=== PATIENT | female | born 1970 | race Caucasian/White ===

== ENCOUNTER → 2020-09-03 08:32 | Outpatient (CLI) | payer OTHER, SELFPAY ==
[2020-09-03 09:54] LABS: Add Manual Diff / Slide Review NO; Basophils Absolute Auto 100 /uL (0-100); Basophils Percent Auto 1.2 % (0-2); Eosinophils Absolute Auto 100 /uL (0-450); Eosinophils Percent Auto 2.6 % (2-4); Hemoglobin 12.2 g/dL (12.0-16.0); Lymphocytes Absolute Auto 1500 /uL (1100-4500); Lymphocytes Percent Auto 28.2 % (25-40); Mean Corpuscular HGB Conc 32.8 % (30-36); Mean Corpuscular Hemoglobin 30.4 PG (26-34); Mean Corpuscular Volume 92.5 fL (80-100); Monocytes Absolute Auto 400 /uL (0-900); Monocytes Percent Auto 6.8 % (3-14); Neutrophils Absolute Auto 3200 /uL (1500-7000); Neutrophils Percent Auto 61.2 % (50-75); Platelet Count 305 X10^3/uL (150-400); Red Cell Distribution Width 13.7 % (11.6-14.8); White Blood Cell Count 5.3 X10^3/uL (4.5-11.0)
[2020-09-03 10:04] LABS: Alanine Aminotransferase 12 IU/L (<35); Albumin 4.1 g/dL (3.5-5.0); Albumin Globulin Ratio 1.6 (1.0-2.8); Alkaline Phosphatase 44 U/L (38-126); Aspartate Aminotransferase 18 IU/L (14-36); BUN Creatinine Ratio 17.7 (6-22); Bilirubin Total 0.4 mg/dL (0.2-1.3); Blood Urea Nitrogen 11 mg/dL (7-17); Calcium 9.1 mg/dL (8.4-10.2); Carbon Dioxide 28 mmol/L (22-32); Chloride 108 mmol/L (98-107); Cholesterol 199 mg/dL (140-199); Estimated Glomerular Filt Rate > 60.0 mL/min (>60); Globulin 2.6 g/dL (1.7-4.1); Glucose 94 mg/dL (70-100); HDL Cholesterol 56 mg/dL (40-60); HEMOLYSIS < 15 (0-50); LDL Cholesterol Calculated 132 mg/dL (<100); Potassium 4.6 mmol/L (3.4-5.1); Sodium 140 mmol/L (137-145); Total Protein 6.7 g/dL (6.3-8.2); Triglycerides 54 mg/dL (35-150)
== END ==
PROVIDERS: PCP Registered Nurse; Referring Provider Registered Nurse; Visit Provider Registered Nurse
DX: D64.9 Anemia, unspecified (principal); Z82.49 Family history of ischemic heart disease and other diseases of the circulatory system
CPT/HCPCS: 36415; 80053; 80061; 85025

== ENCOUNTER → 2022-12-18 09:26 | Outpatient (CLI) | payer OTHER, SELFPAY ==
[2022-12-18 10:19] LABS: Hematocrit 38.3 % (36-46); Hemoglobin 12.4 g/dL (12.0-16.0); Mean Corpuscular HGB Conc 32.4 % (30-36); Mean Corpuscular Volume 92.3 fL (80-100); Platelet Count 386 X10^3/uL (150-400); Red Blood Cell Count 4.15 X10^6/uL (4.0-5.2); Red Cell Distribution Width 14.1 % (11.6-14.8); White Blood Cell Count 6.7 X10^3/uL (4.5-11.0)
[2022-12-18 10:40] LABS: HEMOLYSIS < 15 (0-50); Iron 128 ug/dL (37-170)
[2022-12-18 10:41] LABS: Alanine Aminotransferase 18 IU/L (<35); Albumin 4.7 g/dL (3.5-5.0); Albumin Globulin Ratio 1.7 (1.0-2.8); Alkaline Phosphatase 62 U/L (38-126); Aspartate Aminotransferase 22 IU/L (14-36); BUN Creatinine Ratio 21.1 (6-22); Bilirubin Total 0.7 mg/dL (0.2-1.3); Blood Urea Nitrogen 15 mg/dL (7-17); Calcium 9.7 mg/dL (8.4-10.2); Carbon Dioxide 28 mmol/L (22-32); Chloride 104 mmol/L (98-107); Cholesterol 271 mg/dL (140-199); Estimated Glomerular Filt Rate > 60 mL/min (>60); Globulin 2.8 g/dL (1.7-4.1); Glucose 88 mg/dL (70-100); HDL Cholesterol 62 mg/dL (40-60); HEMOLYSIS < 15 (0-50); LDL Cholesterol Calculated 192 mg/dL (<100); Potassium 4.3 mmol/L (3.4-5.1); Sodium 141 mmol/L (137-145); Total Protein 7.5 g/dL (6.3-8.2); Triglycerides 83 mg/dL (35-150)
[2022-12-18 10:51] LABS: Percent Iron Saturation 38 % (15-50); Total Iron Binding Capacity 341 ug/dL (265-497); Transferrin 259 mg/dL (206-381)
[2022-12-18 10:58] LABS: Vitamin D 25 Hydroxy (D3) 18.8 ng/mL (30.0-100.0)
[2022-12-18 11:12] LABS: TSH w/ Reflex to FT4 1.07 uIU/mL (0.47-4.68)
[2022-12-18 11:15] LABS: Ferritin 49 ng/mL (11-264)
== END ==
PROVIDERS: PCP Family Medicine; Referring Provider Family Medicine; Visit Provider Family Medicine
DX: D64.9 Anemia, unspecified (principal); E55.9 Vitamin D deficiency, unspecified; E78.5 Hyperlipidemia, unspecified; Z12.11 Encounter for screening for malignant neoplasm of colon; Z12.39 Encounter for other screening for malignant neoplasm of breast
CPT/HCPCS: 36415; 80053; 80061; 82306; 82728; 83540; 83550; 84443; 85027

== ENCOUNTER → 2023-01-10 12:26 | Outpatient (CLI) | payer OTHER, SELFPAY ==
--- NOTE | 2023-01-10 12:27 | DI.MG.S_ITS ---
BILATERAL DIGITAL SCREENING MAMMOGRAM 3D/2D WITH CAD: 01/10/2023 CLINICAL: Routine screening. Family history of breast cancer. Comparison is made to exams dated: 04/08/2013 mammogram and 03/16/2010 mammogram - out side. Both breasts are heterogeneously dense, which may obscure small masses (category c / 51-75% glandular tissue). Current study was also evaluated with a Computer Aided Detection (CAD) system. No significant masses, calcifications, or other findings are seen in either breast. There has been no significant interval change. IMPRESSION: NEGATIVE There is no mammographic evidence of malignancy. A 1 year screening mammogram is recommended. Based on Tyrer-Cuzick model (a risk assessment model), the patient's lifetime risk is 27.9% and her 10 year risk is 8.2%. If a patient has an elevated risk, a more comprehensive evaluation should be considered and/or a referral to a genetic counselor. The [employer] [employer], [employer], and NCCN Guidelines advise the consideration of Breast MRI as an adjunct to screening mammography in patients whose Lifetime risk to develop breast cancer is 20% or higher. This exam was interpreted at Station ID: [id number]. NOTE: For mammograms, a report in lay terms will be sent to the patient. Approximately 15% of breast malignancies will not be visualized mammographically. In the management of a palpable breast mass, a negative mammogram must not discourage biopsy of a clinically suspicious lesion. Electronically Signed By: Vini dave/heidi:01/11/2023 11:26:32 letter sent: Normal Exam ACR BI-RADS Category 1: Negative [id number]
== END ==
PROVIDERS: PCP Family Medicine; Referring Provider Family Medicine; Visit Provider Family Medicine
DX: Z12.31 Encounter for screening mammogram for malignant neoplasm of breast (principal); D64.9 Anemia, unspecified; E55.9 Vitamin D deficiency, unspecified; E78.5 Hyperlipidemia, unspecified; Z12.11 Encounter for screening for malignant neoplasm of colon; Z12.39 Encounter for other screening for malignant neoplasm of breast
CPT/HCPCS: 77063; 77067

== ENCOUNTER 2023-03-26 08:59 | Emergency (ER) | payer OTHER, SELFPAY ==
[2023-03-26 09:09] VITALS: BP 186/74; PULSE 66; RESP 14; TEMP 36.2; O2SAT 99; BMI 27.1
--- NOTE | 2023-03-26 09:11 | DI.RAD.S_ITS ---
PROCEDURE: XR FOOT RT MIN 3V INDICATIONS: ankle/foot pain TECHNIQUE: Three views of the foot were acquired. COMPARISON: None. FINDINGS: Bones: Small osseous fragment adjacent to the distal fibular tip could represent a minimally displaced avulsion fracture. No suspicious bony lesions. Soft tissues: Mild soft tissue edema. No suspicious soft tissue calcification. IMPRESSION: Small osseous fragment adjacent to the distal fibular tip could represent a minimally displaced avulsion fracture. Approved by: Abraham Jordan M.D. on 03/26/2023 at 9:57
--- NOTE | 2023-03-26 09:11 | DI.RAD.S_ITS ---
PROCEDURE: XR ANKLE RT MIN 3V INDICATIONS: ankle/foot pain TECHNIQUE: Three views of the ankle were acquired. COMPARISON: None. FINDINGS: Bones: Tiny calcification adjacent to the distal fibular tip could represent a minimally displaced avulsion fragment. Ankle mortise is normally aligned. No suspicious bony lesions. Small posterior calcaneal enthesophyte. Soft tissues: No suspicious soft tissue calcification. Mild soft tissue edema over the lateral malleolus. IMPRESSION: Small calcification adjacent to the distal fibular tip could represent a small minimally displaced osseous avulsion fragment. Approved by: Abraham Jordan M.D. on 03/26/2023 at 9:56
--- NOTE | 2023-03-26 09:59 | PC.NURSE ---
Pt not in lobby when I attempted to bring her into the ED to see the provider
--- NOTE | 2023-03-26 10:29 | PC.NURSE ---
Attempted to bring pt into ED,unable to locate her
--- NOTE | 2023-03-26 11:08 | PC.NURSE ---
3rd attempt made to locate pt,Dr Oconnor will call pt regarding xray
--- NOTE | 2023-03-26 18:08 | ED.LOWEXIN ---
HPI - Extremity Injury (Lower) General Chief Complaint: Extremity Injury, Lower Stated Complaint: Fell down stairs T-3, swelling and pain L/foot Source: patient Mode of arrival: Ambulatory History of Present Illness HPI Narrative: Patient left prior to my evaluation. Triage put in x-rays questionable avulsion fracture. I have called and spoken to patient she reports that she rolled it 4 days ago she was able to walk on it initially but is getting more and more painful and unable to walk. Encouraged her to return to the emergency department for further treatment and pain medication This is a LWBS Related Data Previous Rx's Medication Instructions Recorded estradiol 0.0375 mg/24 hr 1 patch transdermal 2XW #8 ea 03/04/23 semiweekly transdermal patch progesterone micronized 200 mg 200 mg PO BEDTIME #60 caps 03/04/23 capsule (Prometrium) Allergies Allergy/AdvReac Type Severity Reaction Status Date / Time Penicillins Allergy Unknown childhood Verified 03/26/23 09:08 Patient History Social History Smoking Status: Current some day smoker Tobacco: How many years used: 30 alcohol intake: current (1-2 drinks twice weekly ) substance use type: marijuana (couple times a month) Smoking Status: Current some day smoker alcohol intake frequency: a few times a week Substance Use Type: marijuana Exam Initial Vital Signs Initial Vital Signs: Vital Signs Temperature 97.2 F L 03/26/23 09:09 Pulse Rate 66 03/26/23 09:09 Respiratory Rate 14 03/26/23 09:09 Blood Pressure 186/74 H 03/26/23 09:09 Pulse Oximetry 99 03/26/23 09:09 Oxygen Delivery Method Room Air 03/26/23 09:09 Course Orders Ordered: ED Orders 03/26/23 09:11 XR ankle RT min 3V Stat XR foot RT min 3V Stat Discharge Plan Departure Prescriptions: No Action estradiol 0.0375 mg/24 hr patch semiweekly 1 patch transdermal 2XW Qty: 8 1RF Rx Instructions: apply 1 patch for 3 days alternating with 1 patch for 4 days each week for 3 wks per 4-wk cycle progesterone micronized [Prometrium] 200 mg capsule 200 mg PO BEDTIME Qty: 60 1RF Referrals: Nica Rollins DO [Primary Care Provider] -
== END 2023-03-26 11:08 | disposition left against medical advice (07) ==
PROVIDERS: Emergency Provider Emergency Medicine; PCP Family Medicine
DX: S99.911A Unspecified injury of right ankle, initial encounter (principal); S99.921A Unspecified injury of right foot, initial encounter; W10.9XXA Fall (on) (from) unspecified stairs and steps, initial encounter; S82.401A Unspecified fracture of shaft of right fibula, initial encounter for closed fracture; W01.0XXA Fall on same level from slipping, tripping and stumbling without subsequent striking against object, initial encounter
CPT/HCPCS: 73610; 73630; 99281; 99283

== ENCOUNTER 2023-03-26 19:47 | Emergency (ER) | payer OTHER, SELFPAY ==
[2023-03-26 19:53] VITALS: BP 114/71; PULSE 95; RESP 16; TEMP 36.9; O2SAT 95; BMI 26.9
--- NOTE | 2023-03-26 20:05 | ED.LOWEXIN ---
HPI - Extremity Injury (Lower) General Chief Complaint: Extremity Injury, Lower Stated Complaint: SENT FOR A WALKING BOOT Time Seen by Provider: 03/26/23 20:01 Source: patient Mode of arrival: Ambulatory History of Present Illness HPI Narrative: Patient is a 52-year-old female who was seen here in the emergency department earlier today and had x-rays performed secondary to an injury that she sustained to her right ankle a couple days ago when she tripped down a couple stairs. Apparently there was some miscommunication as she was told by the x-ray tech that the results would be available in 2-3 days so the patient left without actually being seen by a provider. The x-rays were reviewed by the day provider in she was contacted and told to return to the emergency department because of the findings showing a avulsion fracture of the lateral malleolus. Patient is here for a walking boot. Related Data Previous Rx's Medication Instructions Recorded estradiol 0.0375 mg/24 hr 1 patch transdermal 2XW #8 ea 03/04/23 semiweekly transdermal patch progesterone micronized 200 mg 200 mg PO BEDTIME #60 caps 03/04/23 capsule (Prometrium) Allergies Allergy/AdvReac Type Severity Reaction Status Date / Time Penicillins Allergy Unknown childhood Verified 03/26/23 19:56 Review of Systems Musculoskeletal Musculoskeletal: Reports system reviewed and no additional complaints, except as documented Integumentary/Breasts Skin/Breast: Reports system reviewed and no additional complaints, except as documented Neurologic Neurologic: Reports system reviewed and no additional complaints, except as documented Patient History Social History Smoking Status: Current some day smoker Tobacco: How many years used: 30 alcohol intake: current (1-2 drinks twice weekly ) substance use type: marijuana (couple times a month) Smoking Status: Current some day smoker alcohol intake frequency: a few times a week Substance Use Type: marijuana Exam Initial Vital Signs Initial Vital Signs: Vital Signs Temperature 98.4 F 03/26/23 19:53 Pulse Rate 95 H 03/26/23 19:53 Respiratory Rate 16 03/26/23 19:53 Blood Pressure 114/71 03/26/23 19:53 Pulse Oximetry 95 03/26/23 19:53 Oxygen Delivery Method Room Air 03/26/23 19:53 Cardio Pulses: dorsalis pedis present on the right Skin General: no rashes or lesions noted Neuro Sensory Exam: no sensory deficits noted Extrem Other: Patient does have tenderness to palpation along the lateral malleolus. The Achilles tendon is intact. Minimal medial malleolar pain. Procedures Orthopedic Splinting/Casting Injury #1: Side: right Lower Extremity Injury Location: ankle Lower Extremity Immobilizer: boot orthosis Post splinting neuro exam: no change Post splinting vascular exam: no change Placed by: Nursing Course Vital Signs Vital signs: Vital Signs - 8 hr 03/26/23 19:53 Temperature 98.4 F Pulse Rate 95 H Respiratory Rate 16 Blood Pressure 114/71 Pulse Oximetry 95 Oxygen Delivery Method Room Air MDM - Extremity Injury (Lower) Imaging Data Extremity x-ray #1: Radiologist's Impression: PROCEDURE:? XR ANKLE RT MIN 3V ? INDICATIONS:? ankle/foot pain ? TECHNIQUE:? Three views of the ankle were acquired.? ? COMPARISON:? None. ? FINDINGS:? ? Bones:? Tiny calcification adjacent to the distal fibular tip could represent a minimally displaced avulsion fragment.? Ankle mortise is normally aligned.? No suspicious bony lesions.? Small posterior calcaneal enthesophyte. ? Soft tissues:? No suspicious soft tissue calcification.? Mild soft tissue edema over the lateral malleolus. ? IMPRESSION:? Small calcification adjacent to the distal fibular tip could represent a small minimally displaced osseous avulsion fragment. Extremity x-ray #2: Radiologist's Impression: PROCEDURE:? XR FOOT RT MIN 3V ? INDICATIONS:? ankle/foot pain ? TECHNIQUE:? Three views of the foot were acquired.? ? COMPARISON:? None. ? FINDINGS:? ? Bones:? Small osseous fragment adjacent to the distal fibular tip could represent a minimally displaced avulsion fracture.? No suspicious bony lesions.? ? Soft tissues:? Mild soft tissue edema.? No suspicious soft tissue calcification. ? IMPRESSION:? Small osseous fragment adjacent to the distal fibular tip could represent a minimally displaced avulsion fracture. [facility] Narrative Medical decision making narrative: The x-rays that are included in this note of a reference purposes only. They were ordered and performed earlier today. They do show a avulsion fracture of the lateral malleolus and the patient does have discomfort with this area. There were no other injuries noted on the x-rays. Patient was placed in a walking boot. There was no indication for crutches. She was given return precautions and follow-up instructions. She expressed understanding and agreement. Discharge Plan Departure Patient Disposition: Home Clinical Impression: Fracture, fibula Instructions: How to Use a Walking Boot Activity Restrictions/Additional Instructions: The walking boot is for your comfort you can take it off at night to sleep and also to shower. I would wear it for the next week or so but then after that you can trial walking on your right leg without the boot and when you are able to walk without any discomfort you can discontinue the boot altogether. Prescriptions: No Action estradiol 0.0375 mg/24 hr patch semiweekly 1 patch transdermal 2XW Qty: 8 1RF Rx Instructions: apply 1 patch for 3 days alternating with 1 patch for 4 days each week for 3 wks per 4-wk cycle progesterone micronized [Prometrium] 200 mg capsule 200 mg PO BEDTIME Qty: 60 1RF Referrals: Nica Rollins DO [Primary Care Provider] - Stand Alone Forms: Patient Portal/API
== END 2023-03-26 20:10 | disposition home or self-care (01) ==
LOC: ED 20:13
PROVIDERS: Emergency Provider Emergency Medicine; PCP Family Medicine
DX: S82.401A Unspecified fracture of shaft of right fibula, initial encounter for closed fracture (principal); W01.0XXA Fall on same level from slipping, tripping and stumbling without subsequent striking against object, initial encounter
CPT/HCPCS: 99281

== ENCOUNTER → 2023-05-09 15:39 | Outpatient (CLI) | payer OTHER, SELFPAY ==
--- NOTE | 2023-05-09 | DI.RAD.S_ITS ---
PROCEDURE: XR ANKLE RT MIN 3V INDICATIONS: Right foot/ankle pain TECHNIQUE: 3 views of the ankle were acquired. COMPARISON: [facility], CR, XR ANKLE RT MIN 3V, 03/26/2023, 9:17. FINDINGS: Bones: No fractures or dislocations. Ankle mortise is normally aligned. No suspicious bony lesions. Soft tissues: [id number] tibiotalar joint effusion. Achilles tendon appears normal. Soft tissue swelling. IMPRESSION: No acute osseous abnormality. There is tibiotalar joint effusion. If clinical symptoms persist, consider MRI for further evaluation. Dictated by: Ricci Ramos M.D. on 05/09/2023 at 16:39 Approved by: iRcci Ramos M.D. on 05/09/2023 at 16:41
--- NOTE | 2023-05-09 | DI.RAD.S_ITS ---
PROCEDURE: XR FOOT RT MIN 3V INDICATIONS: Right foot/ankle pain TECHNIQUE: 3 views of the foot were acquired. COMPARISON: [facility], CR, XR ANKLE RT MIN 3V, 05/09/2023, 15:37. [facility], CR, XR FOOT RT MIN 3V, 03/26/2023, 9:19. FINDINGS: Bones: No fractures or dislocations. No suspicious bony lesions. Soft tissues: No tibiotalar joint effusion. Achilles tendon appears normal. IMPRESSION: 1. No acute osseous abnormalities. If clinical symptoms persist or there is clinical suspicion for internal derangement, MRI is suggested for further evaluation. Dictated by: Ricci Ramos M.D. on 05/09/2023 at 16:41 Approved by: Ricci Ramos M.D. on 05/09/2023 at 16:44
== END ==
PROVIDERS: Family Provider Family Medicine; PCP Family Medicine; Referring Provider Podiatrist Foot & Ankle Surgery; Visit Provider Podiatrist Foot & Ankle Surgery
DX: M25.571 Pain in right ankle and joints of right foot (principal); M25.471 Effusion, right ankle
CPT/HCPCS: 73610; 73630

== ENCOUNTER 2023-05-16 10:38 | Outpatient (RCR) | payer OTHER, SELFPAY ==
--- NOTE | 2023-05-16 11:48 | PT.OIE ---
Current Diagnoses Pain in right foot (05/16/23) Pain in left foot (05/16/23) Paresthesia of skin (05/16/23) Unspecified fracture of shaft of unspecified fibula, initial encounter for closed fracture (05/16/23) Visit Care Team Role Provider Type Nica Rollins DO Attending Provider Physician Family Provider Primary Care Provider Referring Provider Specialty: Medical Address: [address] [place] [address], [address], [place], [address] Email: [email or web address] Physical Therapy Initial Evaluation PT-OP-A Visit Information Start: 05/16/23 10:42 Freq: Status: Active Protocol: Document 05/16/23 11:29 ED (Rec: 05/16/23 11:48 ED [id number]) Out-Patient Physical Therapy Visit Information Visit Information Visit Type Initial Evaluation Visit Note 1 Visit Start Time 10:45 Visit Stop Time 11:30 Total Visit Minutes 45 Visit Number 1 Evaluation Information Evaluation Date 05/16/23 PT-OP-B Current Condition Start: 05/16/23 10:42 Freq: Status: Active Protocol: Document 05/16/23 11:29 ED (Rec: 05/16/23 11:48 ED [id number]) Current Condition History of Current Condition Onset Date February 2023 Current Complaints R foot dorsal pain and sensitivity History of Current Condition Pt states she fell down stairs in February 2023 and had a minor foot injury and went to work. She later had increasing pain so had radiographs which revealed a small avulsion fracture of her R distal fibula. Pt has been in and out of a walking boot, as deemed appropriate by her current campus monitor, since then. She is not donning an ankle boot today. She states that she just saw her campus monitor earlier today and they want her back in the boot for 4 additional weeks. She states she has had negative radiographs recently. She notes her lateral malleolus feels fine now and most of her pain is near the MTP joints of her R foot. Pt states she will likely don the boot for 4 more weeks and wants to know if there are any exercises she can do in the interim. PT-OP-C Subjective Start: 05/16/23 10:42 Freq: Status: Active Protocol: Document 05/16/23 11:29 ED (Rec: 05/16/23 11:48 ED [id number]) OP-PT Subjective Patient Comments Patient Reported Progress Same Patient Questionnaires Lower Extremity Functional Scale LEFS Score 46/80 LEFS Impairment 40 to 59% Impaired (Score 32- 47) OP-PT Pain Assessment Location R dorsum of foot Intensity 5 Scale Used Numeric (0 - 10) Description Aching Frequency Frequent Pain Aggravating Factors Position,Changing Position, Activity,Exercise,Standing, Walking Pain Alleviating Factors Rest PT-OP-G Mobility & Gait Start: 05/16/23 10:42 Freq: Status: Active Protocol: Document 05/16/23 11:29 ED (Rec: 05/16/23 11:48 ED [id number]) OP Gait Assessment Gait Gait Assistance Required: Independent Gait Deviations General Gait Pattern Antalgic Factors Limiting Gait Function Factors Limiting Gait Function Limited Range of Motion,Pain PT-OP-K Range of Motion Start: 05/16/23 10:42 Freq: Status: Active Protocol: Document 05/16/23 11:29 ED (Rec: 05/16/23 11:48 ED [id number]) Ankle and Foot Goniometric Range of Motion Ankle and Foot Left Active Ankle/Foot ROM WFL Yes Testing Position Sitting Dorsiflexion with Knee Extended 5 Plantarflexion 65 Comments patient lacking 5 degrees DF K2W (CM): 10 ankle girth: 48 cm Right Active Ankle/Foot ROM WFL No Testing Position Sitting Dorsiflexion with Knee Extended 5 Plantarflexion 52 Comments patient lacking 5 degrees DF K2W (CM): 7 ankle girth: 52 cm PT-OP-Q Treatments Start: 05/16/23 10:42 Freq: Status: Active Protocol: Document 05/16/23 11:29 ED (Rec: 05/16/23 11:48 ED [id number]) Therapeutic Exercises Sitting Exercises MTP extension stretch Side bilateral Reps/Minutes x15-20 reps inversion Sitting Exercise Name banded inversion Side bilateral Resistance GTB Reps/Minutes x15-20 isometrics Sitting Exercise Name flexion/extension isometrics Side bilateral Reps/Minutes x5 5'' holds Comments invidividual toe isometrics arch lifts Side bilateral Reps/Minutes x5 c/ 5'' holds toe yoga Sitting Exercise Name toe extension/flexion Side bilateral Reps/Minutes x5 c/ 5'' holds PT-OP-T Assessment and Plan Start: 05/16/23 10:42 Freq: Status: Active Protocol: Document 05/16/23 11:29 ED (Rec: 05/16/23 11:48 ED [id number]) Physical Therapy Assessment Rehab Potential Rehabilitation Potential Fair Evaluation Complexity Number of Personal Factors/Comorbidities 1-2 Number of Body Systems Impaired 3 Clinical Presentation at Evaluation Stable Impairments Impairments Activity Tolerance,Edema, Functional Activities Goals Four Impairment LEFS Lan Specialist Goal (LTG) Pt will improve LEFS score to 20%-39% impaired. Two Impairment ROM Short Term Goal (STG) Pt will improve DF ROM (knee to wall test) by 1 cm to 8 cm. STG Duration 2 weeks Lan Specialist Goal (LTG) Pt will demonstrate equal ankle ROM for L and R ankle. LTG Duration 8 weeks Three Impairment pain Short Term Goal (STG) Pt will report 20% improvement in R foot pain during daily activities. STG Duration 3 weeks Nursing Home Goal (LTG) Pt will report 50% improvement in R foot pain during daily activities. LTG Duration 6 weeks One Impairment HEP Short Term Goal (STG) Pt will report performing HEP >4 days/week c/o increases in pain or swelling. STG Duration 2 weeks Nursing Home Goal (LTG) Pt will report performing HEP >4 days/week c/o increases in pain or swelling. LTG Duration 6 weeks Assessment Summary Assessment Pt reported to PT after sustaining a distal fibular avulsion fracture in late February 2023. Pt stated that she had just visited her campus monitor who informed her she should be back to wearing a boot for 4 more weeks and she was unsure if she should participate in PT. PT tooks measurements of ankle for ROM and girth to measure limitations in addition to manual muscle test to determine strength impairments and pain source. Pt had slight limitations in R ankle ROM compared to L and about 4 cm increase in ankle girth of R ankle vs L. PT provided patient of low level, non-WBing exercises such as toe yoga, foot arch squeezes, banded inversion, and MTP stretch which she was able to do comfortably today if she controlled how much force she put into the movement pattern. Physical Therapy Plan Frequency and Duration Frequency of Treatment 1-2x/week Duration of treatment (weeks) 10 Plan of Care Start Date 05/16/23 Plan of Care End Date 11/01/23 Therapeutic Interventions Therapeutic Interventions Balance Training,Gait Training ,Home Exercise Program,Joint Mobilizations,Manual Therapy, Neuromuscular Re-education, Orthotic/Prosthetic Management ,Soft Tissue Mobilization, Taping,Therapeutic Activities, Therapeutic Exercises Modalities Biofeedback,Cold Pack/Ice Massage,Electric Stimulation, Hot Packs,Ultrasound Next Visit Focus/Plan Next Note Type Treatment Note Next Visit Plan NS, HEP (toe yoga, foot arch, toe isometrics, MTP repeated mobs, banded inversion), RS of ankle, re-test K2W and ankle girth
--- NOTE | 2023-05-16 11:48 | PT.OPPOC ---
Physical, Occupational & Speech Therapy At [facility] Current Diagnoses Pain in right foot (05/16/23) Pain in left foot (05/16/23) Paresthesia of skin (05/16/23) Unspecified fracture of shaft of unspecified fibula, initial encounter for closed fracture (05/16/23) Visit Care Team Role Provider Type Nica Rollins DO Attending Provider Physician Family Provider Primary Care Provider Referring Provider Specialty: Medical Address: [address] [place] [address], [address], [place], [address] Email: [email or web address] Plan Of Care PT-OP-T Assessment and Plan Start: 05/16/23 10:42 Freq: Status: Active Protocol: Document 05/16/23 11:29 ED (Rec: 05/16/23 11:48 ED [id number]) Physical Therapy Assessment Rehab Potential Rehabilitation Potential Fair Evaluation Complexity Number of Personal Factors/Comorbidities 1-2 Number of Body Systems Impaired 3 Clinical Presentation at Evaluation Stable Impairments Impairments Activity Tolerance,Edema, Functional Activities Goals Four Impairment LEFS Mcc Goal (LTG) Pt will improve LEFS score to 20%-39% impaired. Two Impairment ROM Short Term Goal (STG) Pt will improve DF ROM (knee to wall test) by 1 cm to 8 cm. STG Duration 2 weeks Test Specialist Goal (LTG) Pt will demonstrate equal ankle ROM for L and R ankle. LTG Duration 8 weeks Three Impairment pain Short Term Goal (STG) Pt will report 20% improvement in R foot pain during daily activities. STG Duration 3 weeks Mcc Goal (LTG) Pt will report 50% improvement in R foot pain during daily activities. LTG Duration 6 weeks One Impairment HEP Short Term Goal (STG) Pt will report performing HEP >4 days/week c/o increases in pain or swelling. STG Duration 2 weeks Test Specialist Goal (LTG) Pt will report performing HEP >4 days/week c/o increases in pain or swelling. LTG Duration 6 weeks Assessment Summary Assessment Pt reported to PT after sustaining a distal fibular avulsion fracture in late February 2023. Pt stated that she had just visited her research manager who informed her she should be back to wearing a boot for 4 more weeks and she was unsure if she should participate in PT. PT tooks measurements of ankle for ROM and girth to measure limitations in addition to manual muscle test to determine strength impairments and pain source. Pt had slight limitations in R ankle ROM compared to L and about 4 cm increase in ankle girth of R ankle vs L. PT provided patient of low level, non-WBing exercises such as toe yoga, foot arch squeezes, banded inversion, and MTP stretch which she was able to do comfortably today if she controlled how much force she put into the movement pattern. Physical Therapy Plan Frequency and Duration Frequency of Treatment 1-2x/week Duration of treatment (weeks) 10 Plan of Care Start Date 05/16/23 Plan of Care End Date 08/14/23 Therapeutic Interventions Therapeutic Interventions Balance Training,Gait Training ,Home Exercise Program,Joint Mobilizations,Manual Therapy, Neuromuscular Re-education, Orthotic/Prosthetic Management ,Soft Tissue Mobilization, Taping,Therapeutic Activities, Therapeutic Exercises Modalities Biofeedback,Cold Pack/Ice Massage,Electric Stimulation, Hot Packs,Ultrasound Next Visit Focus/Plan Next Note Type Treatment Note Next Visit Plan NS, HEP (toe yoga, foot arch, toe isometrics, MTP repeated mobs, banded inversion), RS of ankle, re-test K2W and ankle girth Plan of Care Dates Plan of Care Start Date 05/16/23 Plan of Care End Date 08/14/23 Electronically Signed by: Jalil Lay, PT 05/16/23 1679 If you are in agreement with this Plan of Care, please return a signed and dated copy. I have reviewed this Plan of Care and certify that the skilled therapy services above are required to meet the patient?s needs. Physician Signature Date Printed Name and Credentials Clinical Instructor Signature Printed Name and Credentials
--- NOTE | 2023-07-02 08:32 | PT.OPDS ---
Current Diagnoses Pain in right foot (05/16/23) Pain in left foot (05/16/23) Paresthesia of skin (05/16/23) Unspecified fracture of shaft of unspecified fibula, initial encounter for closed fracture (05/16/23) Visit Care Team Role Provider Type Nica Rollins DO Attending Provider Physician Family Provider Primary Care Provider Referring Provider Specialty: Medical Address: [address] [place] [address], [address], [place], [address] Email: [email or web address] Visit Number Visit Number 1 Discharge Summary PT-OP-B Current Condition Start: 05/16/23 10:42 Freq: Status: Active Protocol: Document 05/16/23 11:29 ED (Rec: 05/16/23 11:48 ED [id number]) Current Condition History of Current Condition Onset Date February 2023 Current Complaints R foot dorsal pain and sensitivity History of Current Condition Pt states she fell down stairs in February 2023 and had a minor foot injury and went to work. She later had increasing pain so had radiographs which revealed a small avulsion fracture of her R distal fibula. Pt has been in and out of a walking boot, as deemed appropriate by her current x ray inspector, since then. She is not donning an ankle boot today. She states that she just saw her x ray inspector earlier today and they want her back in the boot for 4 additional weeks. She states she has had negative radiographs recently. She notes her lateral malleolus feels fine now and most of her pain is near the MTP joints of her R foot. Pt states she will likely don the boot for 4 more weeks and wants to know if there are any exercises she can do in the interim. PT-OP-C Subjective Start: 05/16/23 10:42 Freq: Status: Active Protocol: Document 05/16/23 11:29 ED (Rec: 05/16/23 11:48 ED [id number]) OP-PT Subjective Patient Comments Patient Reported Progress Same Patient Questionnaires Lower Extremity Functional Scale LEFS Score 46/80 LEFS Impairment 40 to 59% Impaired (Score 32- 47) OP-PT Pain Assessment Location R dorsum of foot Intensity 5 Scale Used Numeric (0 - 10) Description Aching Frequency Frequent Pain Aggravating Factors Position,Changing Position, Activity,Exercise,Standing, Walking Pain Alleviating Factors Rest PT-OP-G Mobility & Gait Start: 05/16/23 10:42 Freq: Status: Active Protocol: Document 05/16/23 11:29 ED (Rec: 05/16/23 11:48 ED [id number]) OP Gait Assessment Gait Gait Assistance Required: Independent Gait Deviations General Gait Pattern Antalgic Factors Limiting Gait Function Factors Limiting Gait Function Limited Range of Motion,Pain PT-OP-K Range of Motion Start: 05/16/23 10:42 Freq: Status: Active Protocol: Document 05/16/23 11:29 ED (Rec: 05/16/23 11:48 ED [id number]) Ankle and Foot Goniometric Range of Motion Ankle and Foot Left Active Ankle/Foot ROM WFL Yes Testing Position Sitting Dorsiflexion with Knee Extended 5 Plantarflexion 65 Comments patient lacking 5 degrees DF K2W (CM): 10 ankle girth: 48 cm Right Active Ankle/Foot ROM WFL No Testing Position Sitting Dorsiflexion with Knee Extended 5 Plantarflexion 52 Comments patient lacking 5 degrees DF K2W (CM): 7 ankle girth: 52 cm PT-OP-T Assessment and Plan Start: 05/16/23 10:42 Freq: Status: Active Protocol: Document 07/02/23 08:30 ED (Rec: 07/02/23 08:32 ED [id number]) Physical Therapy Assessment Goals Four Impairment LEFS Skilled Nursing Goal (LTG) Pt will improve LEFS score to 20%-39% impaired. Two Impairment ROM Short Term Goal (STG) Pt will improve DF ROM (knee to wall test) by 1 cm to 8 cm. STG Duration 2 weeks Supervisor Last Model Department Goal (LTG) Pt will demonstrate equal ankle ROM for L and R ankle. LTG Duration 8 weeks Three Impairment pain Short Term Goal (STG) Pt will report 20% improvement in R foot pain during daily activities. STG Duration 3 weeks Supervisor Last Model Department Goal (LTG) Pt will report 50% improvement in R foot pain during daily activities. LTG Duration 6 weeks One Impairment HEP Short Term Goal (STG) Pt will report performing HEP >4 days/week c/o increases in pain or swelling. STG Duration 2 weeks Supervisor Last Model Department Goal (LTG) Pt will report performing HEP >4 days/week c/o increases in pain or swelling. LTG Duration 6 weeks Assessment Summary Assessment Pt will be discharged from PT at this time. Pt came for initial evaluation but was later informed by x ray inspector that she should be back in her ankle boot for 4 additional weeks. PT provided patient with a few low stress exercises for foot and ankle. PT spoke with pt over the phone today, 07/02, and she stated her foot was better and she was out of the boot and feeling good; she declined requiring PT services at this time. Physical Therapy Plan Discharge Physical Therapy Discharge Reasons Patient Request
== END 2023-07-04 11:11 ==
LOC: PHYS 10:38
PROVIDERS: Family Provider Family Medicine; PCP Family Medicine; Referring Provider Family Medicine; Visit Provider Family Medicine
DX: R20.2 Paresthesia of skin (principal); S82.409A Unspecified fracture of shaft of unspecified fibula, initial encounter for closed fracture; M79.671 Pain in right foot; M79.672 Pain in left foot
CPT/HCPCS: 97110; 97162

== ENCOUNTER 2023-06-28 09:29 | Day surgery (SDC) | payer OTHER, SELFPAY ==
[2023-06-28 09:49] VITALS: BP 116/74; PULSE 77; RESP 16; TEMP 36.4; O2SAT 98; BMI 28.3
[2023-06-28] MEDS: LACTATED RINGERS 1,000 ML 42 ML IV (10:05)
--- NOTE | 2023-06-28 11:09 | PM.HP.1 ---
History of Present Illness History of Present Illness Date Patient Seen: 06/28/23 Time Patient Seen: 11:09 Chief complaint: Screening Colonoscopy Narrative: 52-year-old female presents for her 1st screening colonoscopy. She has no family history of colon cancer and no concerning symptoms never had blood in her stools or changes in bowel habits but she does report having a ?nervous stomach? and hemorrhoids. PFS Social History household members: spouse Smoking Status: Current some day smoker Tobacco: How many years used: 30 alcohol intake: current substance use type: marijuana Meds Home Medications and Allergies Home Medications Medication Instructions Recorded Confirmed Type sodium,potassium,mag sulfates 17.5 See Rx Instructions PO .COMPLEX 05/09/23 Rx gram-3.13 gram-1.6 gram oral soln #354 mL (Suprep Bowel Prep Kit) Allergies Allergy/AdvReac Type Severity Reaction Status Date / Time Penicillins Allergy Unknown childhood Verified 06/28/23 09:46 Exam Vital Signs (past 8 hours): - 06/28/23 09:49 Temperature 97.6 F Pulse Rate 77 Respiratory Rate 16 Blood Pressure 116/74 Pulse Oximetry 98 Oxygen Delivery Method Room Air Oxygen Delivery Method Room Air Const General: cooperative, healthy appearing and comfortable Nutritional Appearance: average body habitus HENMT Head: normal to inspection Mouth: oral mucosae normal Eyes General: appearance normal, both eyes and all related structures Resp Effort & Inspection: normal respiratory effort and able to speak in complete sentences GI Palpation: soft and No tender Assessment & Plan Assessment and plan (1) Screening for malignant neoplasm of colon: Status: Acute Assessment & Plan narrative: Presents today for screening colonoscopy I discussed the risks benefits and alternatives including but not limited to perforation of the colon and an incomplete exam she fully understands these risks and would like to proceed.
--- NOTE | 2023-06-28 11:40 | P.OP.COLON_ITS ---
Operative Date/Time/Diagnoses Date of procedure: 06/28/23 Time of procedure: 11:41 Pre-op diagnosis: Screening for colon. cancer no family history Post-op diagnosis: same Procedure & Clinicians Study performed: Colonoscopy Same procedure as scheduled: Yes Indications: Screening for colon cancer Surgeon: Valeria Horton Procedure Notes Procedure in detail: Patient was taken to the endoscopy suite and placed in a left lateral decubitus position. A time-out was performed. With the help of anesthesiologist conscious sedation was induced and monitored throughout the case. A digital rectal exam was performed and there were no masses or strictures. The colonoscope was introduced into the anal canal and advanced through to the cecum. A photograph of the appendiceal orifice was obtained. The bowel prep was good [place] bowel prep score of 2. The scope was then withdrawn for a total of 9 minutes and no polyps were seen. There were scattered diverticula throughout the sigmoid colon. The scope was then retroflexed and a photograph o f the internal hemorrhoidal piles was obtained. Findings: divertiulosis Specimen(s): none sent Post-procedure Recommendations: Colonoscopy in 10 years Plan for aftercare: Unless you develop new concerning symptoms or someone in your family develops colon cancer you can have a follow-up colonoscopy in 10 years. Any patient has diverticula I do recommend daily fiber supplementation.
[2023-06-28 11:43] VITALS: BP 145/82; PULSE 66; RESP 22; TEMP 36.1; O2SAT 98
[2023-06-28 11:48] VITALS: BP 138/79; PULSE 60; RESP 20; O2SAT 100
[2023-06-28 11:53] VITALS: BP 142/67; PULSE 60; RESP 17; O2SAT 100
[2023-06-28 12:00] VITALS: BP 139/80; PULSE 60; RESP 20; O2SAT 100
[2023-06-28] MEDS: ONDANSETRON 4 MG/2 ML INJ IV (12:00)
[2023-06-28 12:16] VITALS: BP 139/85; PULSE 60; RESP 19; TEMP 36.1; O2SAT 100
== END 2023-06-28 12:32 | disposition home or self-care (01) ==
PROVIDERS: Family Provider Family Medicine; PCP Family Medicine; Referring Provider Surgery; Visit Provider Surgery
PROC: 0DJD8ZZ Inspection of Lower Intestinal Tract, Via Natural or Artificial Opening Endoscopic (ICD-10-PCS; CPT 45378; principal; 2023-06-28 10:15)
DX: Z12.11 Encounter for screening for malignant neoplasm of colon (principal); K57.30 Diverticulosis of large intestine without perforation or abscess without bleeding
CPT/HCPCS: 45378; J2405; J2704

== ENCOUNTER → 2025-10-09 12:57 | Outpatient (CLI) | payer OTHER, SELFPAY ==
--- NOTE | 2025-10-09 12:58 | DI.MG.S_ITS ---
MM screening mammo BI: 10/09/2025. BI-RADS: 1 CLINICAL: 55-year old female for bilateral screening mammogram. Tyrer-Cuzick lifetime risk of 27.3%. Current reported family history of breast cancer: mother. PRIOR EXAMS 01/10/2023. MAMMOGRAPHY TECHNIQUE: 2D and 3D (tomosynthesis) digital mammographic views obtained, with additional images as needed for full coverage. Current study was also evaluated with a Computer Aided Detection (CAD) system. DENSITY C. The breasts are heterogeneously dense, which may obscure small masses. MAMMOGRAPHY FINDINGS Bilateral: No suspicious mass, asymmetry, microcalcification, or other abnormality seen. IMPRESSION: * No evidence of malignancy. RECOMMENDATIONS Bilateral * According to the Tyrer-Cuzick Risk Assessment Model, based on the information provided your patient has a greater than 20% lifetime risk for developing breast cancer. Consider supplemental screening with breast MRI and participation in a high risk screening program. * Annual screening mammography. OVERALL ASSESSMENT CATEGORY BI-RADS-1: Negative. The [employer] recommends annual screening mammography beginning at age 40 for women with average risk of breast cancer. ELECTRONICALLY SIGNED: Sangita Baires M.D. on 10/11/2025 at 08:40:10 AM PT Interpreting Station ID: [id number]
== END ==
LOC: MAMMO 12:57
PROVIDERS: Family Provider Family Medicine; PCP Family Medicine; Referring Provider Family Medicine; Visit Provider Family Medicine
DX: Z12.31 Encounter for screening mammogram for malignant neoplasm of breast (principal); R92.333 Mammographic heterogeneous density, bilateral breasts; Z80.3 Family history of malignant neoplasm of breast
CPT/HCPCS: 77063; 77067